=== PATIENT | male | born 2000 | race African-American/Black ===

== ENCOUNTER 2019-07-17 01:33 | Emergency (ER) | payer OTHER ==
[~2019-07-17] VITALS: Ht 172.7 cm; Wt 79.4 kg
[2019-07-17 01:35] VITALS: BP 100/73
[2019-07-17] MEDS ORDERED: FLUORESCEIN 1MG EYE STRIP. OD ONE (02:00)
[2019-07-17] MEDS ORDERED: TETRACAINE 0.5% OPHTH SOLUTION 4ML BOTTLE. OD ONE (02:00)
--- NOTE | 2019-07-17 02:12 | PHYS DOC ---
Adult General Chief Complaint Chief Complaint: EYE PROBLEMS HPI HPI 19-year-old male presents with right eye irritation. 4 days ago, the patient was diagnosed with conjunctivitis at a clinic and given ofloxacin 0.3% drops. He has been taking these 4 times a day. The eye continues to be extremely irritated. When he wakes up morning there is thick crusting. He has drainage throughout the day. He is concerned that the antibiotic is not working and that the irritation may be getting worse. They did not do a fluorescein exam. He denies any other complaints. Review of Systems Review of Systems Constitutional: Denies fever or chills [] Eyes: Erythema, irritation, thick drainage[] HENT: Denies nasal congestion or sore throat [] Respiratory: Denies cough or shortness of breath [] Cardiovascular: No additional information not addressed in HPI [] GI: Denies abdominal pain, nausea, vomiting, bloody stools or diarrhea [] : Denies dysuria or hematuria [] Musculoskeletal: Denies back pain or joint pain [] Integument: Denies rash or skin lesions [] Neurologic: Denies headache, focal weakness or sensory changes [] Endocrine: Denies polyuria or polydipsia [] All other systems were reviewed and found to be within normal limits, except as documented in this note. Current Medications Current Medications Current Medications Medications (Trade) Dose Ordered Sig/Jaleesa Start Time Stop Time Status Last Admin Dose Admin Fluorescein Sodium (Ful-Kia 1mg) 1 strip 1X ONCE 07/17/19 02:00 07/17/19 02:04 DC 07/17/19 02:02 1 STRIP Tetracaine HCl (Tetracaine) 1 drop 1X ONCE 07/17/19 02:00 07/17/19 02:04 DC 07/17/19 02:02 1 DROP Allergies Allergies Allergies Coded Allergies Type Severity Reaction Last Updated Verified No Known Drug Allergies 07/17/19 No Physical Exam Physical Exam Constitutional: Well developed, well nourished, no acute distress, non-toxic appearance. [] HENT: Normocephalic, atraumatic, bilateral external ears normal, oropharynx moist, no oral exudates, nose normal. [] Eyes: PERRLA, EOMI, conjunctiva erythematous, evidence of discharge. [] Neck: Normal range of motion, no tenderness, supple, no stridor. [] Cardiovascular:Heart rate regular rhythm, no murmur [] Lungs & Thorax: Bilateral breath sounds clear to auscultation [] Abdomen: Bowel sounds normal, soft, no tenderness, no masses, no pulsatile masses. [] Skin: Warm, dry, no erythema, no rash. [] Back: No tenderness, no CVA tenderness. [] Extremities: No tenderness, no cyanosis, no clubbing, ROM intact, no edema. [] Neurologic: Alert and oriented X 3, normal motor function, normal sensory function, no focal deficits noted. [] Psychologic: Affect normal, judgement normal, mood normal. [] EKG EKG [] Radiology/Procedures Radiology/Procedures [] Course & Med Decision Making Course & Med Decision Making Pertinent Labs and Imaging studies reviewed. (See chart for details) I performed a for signs and with the patient's right eye. There was no increased uptake or corneal abrasion. I will switch the patient from ofloxacin drops to erythromycin ointment. We will give the first dose in the ED. He is stable for discharge at this time. [] Dragon Disclaimer Dragon Disclaimer This electronic medical record was generated, in whole or in part, using a voice recognition dictation system. Departure Departure: Impression: Primary Impression: Bacterial conjunctivitis of right eye Disposition: 01 HOME, SELF-CARE Condition: STABLE Referrals: PCP,JEAN-CLAUDE (PCP) Patient Instructions: Bacterial Conjunctivitis, [id number] HENRI SHAVER DO Jul 17, 2019 02:12
[2019-07-17] MEDS ORDERED: ERYTHROMYCIN 0.5% OPHTH OINTMENT 1GM TUBE. OD ONE (02:15)
== END 2019-07-17 02:10 | disposition home or self-care (01) ==
LOC: ER 01:33
DX: H10.89 Other conjunctivitis (principal)
CPT/HCPCS: 99283; 99284

== ENCOUNTER 2020-10-13 04:52 | Emergency (ER) | payer SELFPAY ==
[~2020-10-13] VITALS: Ht 172.7 cm; Wt 82.0 kg
[2020-10-13 04:52] VITALS: BP 110/80
[2020-10-13] MEDS ORDERED: AMOX1TAB61 PO (05:09)
--- NOTE | 2020-10-13 05:11 | PHYS DOC ---
Past History Past Medical History: No Pertinent History Past Surgical History: No Surgical History Alcohol Use: Occasionally Drug Use: None Adult General Chief Complaint Chief Complaint: SORE THROAT HPI HPI Patient is a 20-year-old male who presents with 1 day of sore throat, and fevers at home to 101. States he has had a mild headache, off and on, 3 out of 10, and a sore throat for about a day. Denies runny nose, cough, chest pain, shortness of breath. Denies any recent travel, known ill contacts. Review of Systems Review of Systems Review of systems otherwise unremarkable except noted in HPI Allergies Allergies Allergies Coded Allergies Type Severity Reaction Last Updated Verified No Known Drug Allergies 07/17/19 No Physical Exam Physical Exam Constitutional: Well developed, well nourished, no acute distress, non-toxic appearance. [] HENT: Normocephalic, atraumatic, oropharynx erythematous with scattered white exudate and left-sided lymphadenopathy. Tympanic membranes normal Eyes: conjunctiva normal, no discharge. [] Neck: Normal range of motion, no tenderness, supple, no stridor. [] Cardiovascular:Heart rate regular rhythm, no murmur [] Lungs & Thorax: Bilateral breath sounds clear to auscultation [] Skin: Warm, dry, no erythema, no rash. [] Extremities: No tenderness, no cyanosis, no clubbing, ROM intact, no edema. [] Neurologic: Alert and oriented X 3, normal motor function, normal sensory function, no focal deficits noted. [] Psychologic: Affect normal, judgement normal, mood normal. [] EKG EKG [] Radiology/Procedures Radiology/Procedures [] Heart Score Risk Factors: Risk Factors: DM, Current or recent (<one month) smoker, HTN, HLP, family history of CAD, obesity. Risk Scores: Risk Factors: DM, Current or recent (<one month) smoker, HTN, HLP, family history of CAD, obesity. Course & Med Decision Making Course & Med Decision Making Patient is a 20-year-old male who presents with a chief complaint of sore throat and headache for day Vital signs not concerning. Physical exam noted above. Patient given first dose of Augmentin, Tylenol and ibuprofen in the ED. Centor criteria of 5. Probable strep pharyngitis. Gave work note for today. Gave instructions at home for symptom control. Advised to follow-up with primary care physician to set up a follow-up visit. Gave return precautions to the ED. Patient grateful, verbalized understanding and agreed with plan of discharge. [] Yang Disclaimer Draggenna Disclaimer This electronic medical record was generated, in whole or in part, using a voice recognition dictation system. Departure Departure: Impression: Primary Impression: Pharyngitis Disposition: 01 DC HOME SELF CARE/HOMELESS Condition: GOOD Referrals: PCP,NO (PCP) Patient Instructions: Strep Throat Additional Instructions: Please read all the attached information. Please take your antibiotics as prescribed. Please continue to take Tylenol, ibuprofen and throat lozenges as needed at home for pain control. You were given a work note for today. As discussed as long as you take your antibiotics and you have no fever tomorrow you can return to work. Please call your primary care physician as soon as you can to set up a follow-up visit. Please come back to the ED with new or concerning symptoms. Scripts Amoxicillin/Potassium Clav (AUGMENTIN [id number] TABLET) 1 Each Tablet 1 TAB PO BID for strep throat for 10 Days, #19 TAB 0 Refills Prov: BLADIMIR DELGADILLO MD 10/13/20 BLADIMIR DELGADILLO MD Oct 13, 2020 05:10
[2020-10-13] MEDS ORDERED: IBUPROFEN 600 MG TABLET. PO ONE (05:30)
[2020-10-13] MEDS ORDERED: ACETAMINOPHEN 500 MG TABLET PO ONE (05:30)
[2020-10-13] MEDS ORDERED: AMOXICILLIN/K CLAV 875/125MG TABLET. PO ONE (05:30)
== END 2020-10-13 05:25 | disposition home or self-care (01) ==
LOC: ER 04:52
DX: J02.9 Acute pharyngitis, unspecified (principal); R50.9 Fever, unspecified; R51.9 Headache, unspecified
CPT/HCPCS: 99284